=== PATIENT | female | born 1980 | race Caucasian/White ===

== ENCOUNTER 2021-09-16 19:00 | Outpatient (CLI) | payer MEDICARE, OTHER | END 2021-09-16 19:01 | disposition home or self-care (01) | LOC: SLEEPLAB 19:00 | PROVIDERS: ATTEND Internal Medicine Pulmonary Disease | DX: G47.33 Obstructive sleep apnea (adult) (pediatric) (principal); R53.83 Other fatigue; E66.9 Obesity, unspecified; R06.89 Other abnormalities of breathing; R09.02 Hypoxemia; K21.9 Gastro-esophageal reflux disease without esophagitis | CPT/HCPCS: 95810 ==

== ENCOUNTER 2021-10-08 19:00 | Outpatient (CLI) | payer MEDICARE, OTHER | END 2021-10-08 19:01 | disposition home or self-care (01) | LOC: SLEEPLAB 19:00 | PROVIDERS: ATTEND Internal Medicine Pulmonary Disease | DX: G47.33 Obstructive sleep apnea (adult) (pediatric) (principal); R06.89 Other abnormalities of breathing; R53.83 Other fatigue; I27.20 Pulmonary hypertension, unspecified; R06.83 Snoring; G47.10 Hypersomnia, unspecified; E66.9 Obesity, unspecified; Z68.42 Body mass index [BMI] 45.0-49.9, adult | CPT/HCPCS: 95811 ==

== ENCOUNTER 2021-11-21 00:57 | Inpatient (IN) | payer MEDICARE, OTHER ==
[2021-11-21] MEDS ORDERED: Ondansetron PF 4 MG/2 ML Vial IVP PRN ×2 (01:00→05:13)
[2021-11-21] MEDS ORDERED: Ondansetron ODT 4 MG TAB SL PRN (01:00)
[2021-11-21] MEDS ORDERED: Acetaminophen 325 MG TAB PO PRN ×2 (01:00→05:13)
[2021-11-21] MEDS ORDERED: Pharmacy to Dose REMDESIVIR IVPB PRN (05:16)
[2021-11-21] MEDS ORDERED: Sodium Chloride 0.9% 500 ML IV SCH (06:00)
[2021-11-21 07:33] LABS: Anion Gap 13 mmol/L (10-20); BUN (Urea Nitrogen) 20 mg/dL (7.0-18.7); Calc. Creatinine Clearance 132 mL/min (70-130); Calcium 7.2 mg/dL (7.8-10.44); Carbon Dioxide 24 mmol/L (22-29); Chloride 102 mmol/L (98-107); Glucose 138 mg/dL (70-105); Potassium 4.3 mmol/L (3.5-5.1); Sodium 135 mmol/L (136-145)
[2021-11-21 08:05] LABS: Band 20 % (5-11); Hemoglobin 11.6 g/dL (12.0-16.0); Lymphocytes 6 % (21-51); MDiff Complete? YES; Macrocytosis MODERATE=16-30 cells (100X) (0-5/hpf); Mean Corpuscular HGB CONC 32.1 g/dL (32.0-36.0); Mean Corpuscular Hemoglobin 33.7 pg (27.0-31.0); Mean Platelet Volume 9.7 fL (7.4-10.4); Metamyelocyte 3 % (0-0); Monocytes 2 % (0-10); Neutrophil 69 % (42-75); Nucleated RBC 1 % (0); Platelet Count 86 thou/uL (130-400); Platelet Morphology Comment Appears Decreased; Polychromasia MODERATE = 3-4 cells (100X) (0-2/hpf); RBC Distribution Width 16.1 % (11.5-14.5); Red Blood Cell (RBC) Count 3.44 mill/uL (4.20-5.40); White Blood Cell (WBC) Count 3.8 thou/uL (4.8-10.8)
[2021-11-21] MEDS ORDERED: REMDESIVIR 200 MG in Sodium Chloride 0.9% 250 ML 210 ML IV SCH (08:15)
[2021-11-21] MEDS: Ascorbic Acid 500 mg Chewable Tablet PO SCH (08:53)
[2021-11-21] MEDS: Famotidine 20 MG TAB PO SCH ×2 (08:53→20:50)
[2021-11-21] MEDS: Zinc Sulfate 220 MG CAP PO SCH (08:54)
[2021-11-21] MEDS ORDERED: FLU VACC QS2021-22(6MOS UP)/PF 60 MCG/0.5 ML SYRINGE IM ONE (09:00)
[2021-11-21] MEDS: Dexamethasone 10 MG/ML VIAL SLOW IVP SCH (20:49)
[2021-11-22 04:08] LABS: Anion Gap 12 mmol/L (10-20); BUN (Urea Nitrogen) 22 mg/dL (7.0-18.7); Calc. Creatinine Clearance 142 mL/min (70-130); Calcium 7.3 mg/dL (7.8-10.44); Carbon Dioxide 28 mmol/L (22-29); Chloride 99 mmol/L (98-107); Glucose 137 mg/dL (70-105); Potassium 3.7 mmol/L (3.5-5.1); Sodium 135 mmol/L (136-145)
[2021-11-22 04:10] LABS: ALT (SGPT) 10 U/L (8-55); AST (SGOT) 26 U/L (5-34); Albumin 2.7 g/dL (3.5-5.0); Alkaline Phosphatase 102 U/L (40-110); Bilirubin, Direct 0.5 mg/dL (0.1-0.3); Bilirubin, Total 0.9 mg/dL (0.2-1.2); Protein, Total 6.5 g/dL (6.0-8.3)
[2021-11-22 04:44] LABS: Anisocytosis SLIGHT = 6-15 cells (100X) (0-5/hpf); Band 26 % (5-11); Hemoglobin 11.6 g/dL (12.0-16.0); Lymphocytes 9 % (21-51); MDiff Complete? YES; Mean Corpuscular HGB CONC 31.8 g/dL (32.0-36.0); Mean Corpuscular Hemoglobin 33.2 pg (27.0-31.0); Neutrophil 65 % (42-75); Nucleated RBC 3 % (0); Platelet Count 91 thou/uL (130-400); Platelet Morphology Comment Appears Decreased; RBC Distribution Width 16.1 % (11.5-14.5); Red Blood Cell (RBC) Count 3.48 mill/uL (4.20-5.40); White Blood Cell (WBC) Count 3.4 thou/uL (4.8-10.8)
[2021-11-22] MEDS ORDERED: TADALAFIL 20 MG PO SCH (09:00)
[2021-11-22] MEDS: Spironolactone 25 MG TAB PO SCH (09:24)
[2021-11-22] MEDS: Ascorbic Acid 500 mg Chewable Tablet PO SCH (09:24)
[2021-11-22] MEDS: Cholecalciferol 1,000 UNITS (25 MCG) TAB PO SCH (09:24)
[2021-11-22] MEDS: Cyanocobalamin (Vitamin B-12) 1,000 MCG TAB PO SCH (09:25)
[2021-11-22] MEDS: Enoxaparin Sodium 40 MG/0.4 ML SYRINGE SC SCH (09:25)
[2021-11-22] MEDS: Dexamethasone 10 MG/ML VIAL SLOW IVP SCH ×2 (09:25→22:19)
[2021-11-22] MEDS: Escitalopram Oxalate 10 mg Tablet PO SCH (09:38)
[2021-11-22] MEDS: Furosemide 40 MG TAB PO SCH (09:39)
[2021-11-22] MEDS: REMDESIVIR 100 MG in Sodium Chloride 0.9% 250 ML 230 ML IV SCH (09:39)
[2021-11-22] MEDS: Famotidine 20 MG TAB PO SCH ×2 (09:39→22:18)
[2021-11-22] MEDS: Zinc Sulfate 220 MG CAP PO SCH (09:39)
[2021-11-22] MEDS: Topiramate 25 MG TAB PO SCH ×2 (10:05→22:18)
[2021-11-22] MEDS: Magnesium Oxide 250 MG TAB PO SCH (10:05)
[2021-11-22] MEDS: Mometasone 100 MCG/Formoterol 5 MCG 120 PUFF INHALER INH SCH (10:46)
[2021-11-23] MEDS: Mometasone 100 MCG/Formoterol 5 MCG 120 PUFF INHALER INH SCH ×3 (07:01→20:42)
[2021-11-23 08:27] LABS: ALT (SGPT) 11 U/L (8-55); AST (SGOT) 23 U/L (5-34); Albumin 2.8 g/dL (3.5-5.0); Alkaline Phosphatase 98 U/L (40-110); Anion Gap 10 mmol/L (10-20); BUN (Urea Nitrogen) 28 mg/dL (7.0-18.7); Bilirubin, Direct 0.5 mg/dL (0.1-0.3); Bilirubin, Total 0.9 mg/dL (0.2-1.2); Calc. Creatinine Clearance 148 mL/min (70-130); Calcium 7.7 mg/dL (7.8-10.44); Carbon Dioxide 31 mmol/L (22-29); Chloride 100 mmol/L (98-107); Glucose 125 mg/dL (70-105); Potassium 3.8 mmol/L (3.5-5.1); Protein, Total 6.6 g/dL (6.0-8.3); Sodium 137 mmol/L (136-145)
[2021-11-23 08:50] LABS: Band 17 % (5-11); Hemoglobin 11.8 g/dL (12.0-16.0); Lymphocytes 15 % (21-51); MDiff Complete? YES; Macrocytosis SLIGHT = 6-15 cells (100X) (0-5/hpf); Mean Corpuscular HGB CONC 32.4 g/dL (32.0-36.0); Mean Corpuscular Hemoglobin 33.7 pg (27.0-31.0); Metamyelocyte 1 % (0-0); Monocytes 1 % (0-10); Neutrophil 66 % (42-75); Nucleated RBC 5 % (0); Platelet Count 101 thou/uL (130-400); Platelet Morphology Comment Appears Decreased; Polychromasia SLIGHT = 2-3 cells (100X) (0-2/hpf); RBC Distribution Width 16.1 % (11.5-14.5); Red Blood Cell (RBC) Count 3.51 mill/uL (4.20-5.40); White Blood Cell (WBC) Count 3.2 thou/uL (4.8-10.8)
[2021-11-23] MEDS: Ascorbic Acid 500 mg Chewable Tablet PO SCH (09:25)
[2021-11-23] MEDS: Spironolactone 25 MG TAB PO SCH (09:25)
[2021-11-23] MEDS: Cholecalciferol 1,000 UNITS (25 MCG) TAB PO SCH (09:26)
[2021-11-23] MEDS: Cyanocobalamin (Vitamin B-12) 1,000 MCG TAB PO SCH (09:26)
[2021-11-23] MEDS: Enoxaparin Sodium 40 MG/0.4 ML SYRINGE SC SCH (09:26)
[2021-11-23] MEDS: Dexamethasone 10 MG/ML VIAL SLOW IVP SCH ×2 (09:26→19:58)
[2021-11-23] MEDS: Topiramate 25 MG TAB PO SCH ×2 (09:27→19:58)
[2021-11-23] MEDS: Famotidine 20 MG TAB PO SCH ×2 (09:27→19:58)
[2021-11-23] MEDS: Magnesium Oxide 250 MG TAB PO SCH (09:27)
[2021-11-23] MEDS: Zinc Sulfate 220 MG CAP PO SCH (09:27)
[2021-11-23] MEDS: Escitalopram Oxalate 10 mg Tablet PO SCH (09:27)
[2021-11-23] MEDS: REMDESIVIR 100 MG in Sodium Chloride 0.9% 250 ML 230 ML IV SCH (09:27)
[2021-11-23] MEDS: Furosemide 40 MG TAB PO SCH (09:27)
[2021-11-24 03:53] LABS: Anion Gap 12 mmol/L (10-20); BUN (Urea Nitrogen) 29 mg/dL (7.0-18.7); Calc. Creatinine Clearance 145 mL/min (70-130); Calcium 7.8 mg/dL (7.8-10.44); Carbon Dioxide 26 mmol/L (22-29); Chloride 102 mmol/L (98-107); Glucose 124 mg/dL (70-105); Potassium 3.9 mmol/L (3.5-5.1); Sodium 136 mmol/L (136-145)
[2021-11-24 03:56] LABS: ALT (SGPT) 11 U/L (8-55); AST (SGOT) 22 U/L (5-34); Albumin 2.8 g/dL (3.5-5.0); Alkaline Phosphatase 94 U/L (40-110); Bilirubin, Direct 0.5 mg/dL (0.1-0.3); Bilirubin, Total 0.7 mg/dL (0.2-1.2); Protein, Total 6.6 g/dL (6.0-8.3)
[2021-11-24 06:23] LABS: Mean Corpuscular HGB CONC 32.4 g/dL (32.0-36.0); Mean Corpuscular Hemoglobin 33.7 pg (27.0-31.0); Mean Platelet Volume 9.9 fL (7.4-10.4); Platelet Count 100 thou/uL (130-400); RBC Distribution Width 16.2 % (11.5-14.5); Red Blood Cell (RBC) Count 3.55 mill/uL (4.20-5.40)
[2021-11-24 06:52] LABS: Anisocytosis SLIGHT = 6-15 cells (100X) (0-5/hpf); Band 30 % (5-11); Lymphocytes 9 % (21-51); MDiff Complete? YES; Neutrophil 61 % (42-75); Nucleated RBC 3 % (0); White Blood Cell (WBC) Count 3.7 thou/uL (4.8-10.8)
[2021-11-24] MEDS: Mometasone 100 MCG/Formoterol 5 MCG 120 PUFF INHALER INH SCH ×2 (07:08→19:26)
[2021-11-24] MEDS: Ascorbic Acid 500 mg Chewable Tablet PO SCH (09:03)
[2021-11-24] MEDS: Spironolactone 25 MG TAB PO SCH (09:03)
[2021-11-24] MEDS: Cholecalciferol 1,000 UNITS (25 MCG) TAB PO SCH (09:03)
[2021-11-24] MEDS: Cyanocobalamin (Vitamin B-12) 1,000 MCG TAB PO SCH (09:03)
[2021-11-24] MEDS: Magnesium Oxide 250 MG TAB PO SCH (09:04)
[2021-11-24] MEDS: Escitalopram Oxalate 10 mg Tablet PO SCH (09:04)
[2021-11-24] MEDS: Furosemide 40 MG TAB PO SCH (09:04)
[2021-11-24] MEDS: Famotidine 20 MG TAB PO SCH ×2 (09:04→21:14)
[2021-11-24] MEDS: Topiramate 25 MG TAB PO SCH ×2 (09:04→21:14)
[2021-11-24] MEDS: Enoxaparin Sodium 40 MG/0.4 ML SYRINGE SC SCH (09:04)
[2021-11-24] MEDS: Dexamethasone 10 MG/ML VIAL SLOW IVP SCH ×2 (09:04→21:14)
[2021-11-24] MEDS: REMDESIVIR 100 MG in Sodium Chloride 0.9% 250 ML 230 ML IV SCH (09:04)
[2021-11-24] MEDS: Zinc Sulfate 220 MG CAP PO SCH (09:05)
[2021-11-25 03:48] LABS: ALT (SGPT) 12 U/L (8-55); AST (SGOT) 24 U/L (5-34); Albumin 2.7 g/dL (3.5-5.0); Alkaline Phosphatase 88 U/L (40-110); Bilirubin, Direct 0.5 mg/dL (0.1-0.3); Bilirubin, Total 0.8 mg/dL (0.2-1.2); Protein, Total 6.5 g/dL (6.0-8.3)
[2021-11-25] MEDS: Mometasone 100 MCG/Formoterol 5 MCG 120 PUFF INHALER INH SCH ×2 (07:05→18:57)
[2021-11-25] MEDS: Famotidine 20 MG TAB PO SCH ×2 (09:43→20:58)
[2021-11-25] MEDS: Topiramate 25 MG TAB PO SCH ×2 (09:44→20:58)
[2021-11-25] MEDS: Magnesium Oxide 250 MG TAB PO SCH (09:44)
[2021-11-25] MEDS: Ascorbic Acid 500 mg Chewable Tablet PO SCH (09:44)
[2021-11-25] MEDS: REMDESIVIR 100 MG in Sodium Chloride 0.9% 250 ML 230 ML IV SCH (09:44)
[2021-11-25] MEDS: Enoxaparin Sodium 40 MG/0.4 ML SYRINGE SC SCH (09:45)
[2021-11-25] MEDS: Spironolactone 25 MG TAB PO SCH (09:45)
[2021-11-25] MEDS: Furosemide 40 MG TAB PO SCH (09:45)
[2021-11-25] MEDS: Zinc Sulfate 220 MG CAP PO SCH (09:45)
[2021-11-25] MEDS: Dexamethasone 10 MG/ML VIAL SLOW IVP SCH ×2 (09:45→20:58)
[2021-11-25] MEDS: Cholecalciferol 1,000 UNITS (25 MCG) TAB PO SCH (09:45)
[2021-11-25] MEDS: Cyanocobalamin (Vitamin B-12) 1,000 MCG TAB PO SCH (09:45)
[2021-11-25] MEDS: Escitalopram Oxalate 10 mg Tablet PO SCH (09:45)
[2021-11-26] MEDS: Cholecalciferol 1,000 UNITS (25 MCG) TAB PO SCH (09:25)
[2021-11-26] MEDS: Spironolactone 25 MG TAB PO SCH (09:25)
[2021-11-26] MEDS: Magnesium Oxide 250 MG TAB PO SCH (09:25)
[2021-11-26] MEDS: Zinc Sulfate 220 MG CAP PO SCH (09:25)
[2021-11-26] MEDS: Topiramate 25 MG TAB PO SCH ×2 (09:25→21:35)
[2021-11-26] MEDS: Furosemide 40 MG TAB PO SCH (09:25)
[2021-11-26] MEDS: Cyanocobalamin (Vitamin B-12) 1,000 MCG TAB PO SCH (09:25)
[2021-11-26] MEDS: Ascorbic Acid 500 mg Chewable Tablet PO SCH (09:26)
[2021-11-26] MEDS: Dexamethasone 10 MG/ML VIAL SLOW IVP SCH ×2 (09:26→21:35)
[2021-11-26] MEDS: Escitalopram Oxalate 10 mg Tablet PO SCH (09:26)
[2021-11-26] MEDS: Famotidine 20 MG TAB PO SCH ×2 (09:26→21:35)
[2021-11-26] MEDS: Enoxaparin Sodium 40 MG/0.4 ML SYRINGE SC SCH (09:27)
[2021-11-26] MEDS: Mometasone 100 MCG/Formoterol 5 MCG 120 PUFF INHALER INH SCH ×2 (09:29→20:11)
[2021-11-27 06:31] VITALS: BMI 46.0
[2021-11-27] MEDS: Mometasone 100 MCG/Formoterol 5 MCG 120 PUFF INHALER INH SCH ×2 (08:07→19:36)
[2021-11-27] MEDS: Magnesium Oxide 250 MG TAB PO SCH (09:28)
[2021-11-27] MEDS: Topiramate 25 MG TAB PO SCH ×2 (09:28→20:36)
[2021-11-27] MEDS: Ascorbic Acid 500 mg Chewable Tablet PO SCH (09:35)
[2021-11-27] MEDS: Cholecalciferol 1,000 UNITS (25 MCG) TAB PO SCH (09:36)
[2021-11-27] MEDS: Famotidine 20 MG TAB PO SCH ×2 (09:37→20:36)
[2021-11-27] MEDS: Escitalopram Oxalate 10 mg Tablet PO SCH (09:37)
[2021-11-27] MEDS: Dexamethasone 10 MG/ML VIAL SLOW IVP SCH ×2 (09:37→20:36)
[2021-11-27] MEDS: Cyanocobalamin (Vitamin B-12) 1,000 MCG TAB PO SCH (09:37)
[2021-11-27] MEDS: Spironolactone 25 MG TAB PO SCH (09:37)
[2021-11-27] MEDS: Zinc Sulfate 220 MG CAP PO SCH (09:37)
[2021-11-27] MEDS: Enoxaparin Sodium 40 MG/0.4 ML SYRINGE SC SCH (09:37)
[2021-11-27] MEDS: Furosemide 40 MG TAB PO SCH (09:37)
[2021-11-27 10:22] LABS: #Eosinphils 0.1 thou/uL (0.0-0.7); #Lymphocytes 0.5 thou/uL (1.20-3.40); #Monocytes 0.2 thou/uL (0.11-0.59); %Basophils 0.1 % (0.0-1.0); %Eosinophils 1.7 % (0.0-10.0); %Lymphocytes 10.4 % (21.0-51.0); %Monocytes 4.7 % (0.0-10.0); %Neutrophils 83.1 % (42.0-75.0); Hemoglobin 13.6 g/dL (12.0-16.0); MDiff Complete? YES; Macrocytosis SLIGHT = 6-15 cells (100X) (0-5/hpf); Mean Corpuscular Hemoglobin 33.1 pg (27.0-31.0); Mean Platelet Volume 9.7 fL (7.4-10.4); Platelet Count 106 thou/uL (130-400); Platelet Morphology Comment Appears Decreased; Polychromasia SLIGHT = 2-3 cells (100X) (0-2/hpf); RBC Distribution Width 16.1 % (11.5-14.5); White Blood Cell (WBC) Count 4.8 thou/uL (4.8-10.8)
[2021-11-27 10:24] LABS: ALT (SGPT) 13 U/L (8-55); AST (SGOT) 21 U/L (5-34); Albumin 2.9 g/dL (3.5-5.0); Alkaline Phosphatase 86 U/L (40-110); Anion Gap 11 mmol/L (10-20); BUN (Urea Nitrogen) 31 mg/dL (7.0-18.7); Bilirubin, Total 1.2 mg/dL (0.2-1.2); Calc. Creatinine Clearance 145 mL/min (70-130); Carbon Dioxide 27 mmol/L (22-29); Chloride 103 mmol/L (98-107); Globulin 3.8 g/dL (2.4-3.5); Glucose 105 mg/dL (70-105); Protein, Total 6.7 g/dL (6.0-8.3); Sodium 137 mmol/L (136-145)
[2021-11-28] MEDS: Mometasone 100 MCG/Formoterol 5 MCG 120 PUFF INHALER INH SCH ×2 (06:30→17:38)
[2021-11-28] MEDS: Magnesium Oxide 250 MG TAB PO SCH (09:48)
[2021-11-28] MEDS: Cholecalciferol 1,000 UNITS (25 MCG) TAB PO SCH (09:48)
[2021-11-28] MEDS: Ascorbic Acid 500 mg Chewable Tablet PO SCH (09:49)
[2021-11-28] MEDS: Furosemide 40 MG TAB PO SCH (09:49)
[2021-11-28] MEDS: Escitalopram Oxalate 10 mg Tablet PO SCH (09:50)
[2021-11-28] MEDS: Famotidine 20 MG TAB PO SCH ×2 (09:50→22:00)
[2021-11-28] MEDS: Cyanocobalamin (Vitamin B-12) 1,000 MCG TAB PO SCH (09:50)
[2021-11-28] MEDS: Dexamethasone 10 MG/ML VIAL SLOW IVP SCH ×2 (09:50→22:00)
[2021-11-28] MEDS: Zinc Sulfate 220 MG CAP PO SCH (09:50)
[2021-11-28] MEDS: Topiramate 25 MG TAB PO SCH ×2 (09:50→22:00)
[2021-11-28] MEDS: Enoxaparin Sodium 40 MG/0.4 ML SYRINGE SC SCH (09:52)
[2021-11-28] MEDS: Spironolactone 25 MG TAB PO SCH (17:41)
[2021-11-29] MEDS: Mometasone 100 MCG/Formoterol 5 MCG 120 PUFF INHALER INH SCH ×2 (05:49→18:28)
[2021-11-29] MEDS: Furosemide 40 MG TAB PO SCH (08:49)
[2021-11-29] MEDS: Escitalopram Oxalate 10 mg Tablet PO SCH (08:49)
[2021-11-29] MEDS: Magnesium Oxide 250 MG TAB PO SCH (08:49)
[2021-11-29] MEDS: Famotidine 20 MG TAB PO SCH ×2 (08:49→21:00)
[2021-11-29] MEDS: Cholecalciferol 1,000 UNITS (25 MCG) TAB PO SCH (08:50)
[2021-11-29] MEDS: Dexamethasone 10 MG/ML VIAL SLOW IVP SCH ×2 (08:50→21:00)
[2021-11-29] MEDS: Ascorbic Acid 500 mg Chewable Tablet PO SCH (08:50)
[2021-11-29] MEDS: Spironolactone 25 MG TAB PO SCH (08:50)
[2021-11-29] MEDS: Cyanocobalamin (Vitamin B-12) 1,000 MCG TAB PO SCH (08:50)
[2021-11-29] MEDS: Zinc Sulfate 220 MG CAP PO SCH (08:50)
[2021-11-29] MEDS: Topiramate 25 MG TAB PO SCH ×2 (08:52→21:00)
[2021-11-29] MEDS: Enoxaparin Sodium 40 MG/0.4 ML SYRINGE SC SCH (08:55)
[2021-11-30] MEDS: Mometasone 100 MCG/Formoterol 5 MCG 120 PUFF INHALER INH SCH ×3 (06:03→18:11)
[2021-11-30] MEDS: Spironolactone 25 MG TAB PO SCH (08:19)
[2021-11-30] MEDS: Furosemide 40 MG TAB PO SCH (08:20)
[2021-11-30] MEDS: Cholecalciferol 1,000 UNITS (25 MCG) TAB PO SCH (08:20)
[2021-11-30] MEDS: Zinc Sulfate 220 MG CAP PO SCH (08:20)
[2021-11-30] MEDS: Escitalopram Oxalate 10 mg Tablet PO SCH (08:20)
[2021-11-30] MEDS: Ascorbic Acid 500 mg Chewable Tablet PO SCH (08:20)
[2021-11-30] MEDS: Magnesium Oxide 250 MG TAB PO SCH (08:20)
[2021-11-30] MEDS: Famotidine 20 MG TAB PO SCH ×2 (08:20→21:20)
[2021-11-30] MEDS: Cyanocobalamin (Vitamin B-12) 1,000 MCG TAB PO SCH (08:20)
[2021-11-30] MEDS: Topiramate 25 MG TAB PO SCH ×2 (08:22→21:20)
[2021-11-30] MEDS: Dexamethasone 10 MG/ML VIAL SLOW IVP SCH ×2 (08:25→21:20)
[2021-11-30] MEDS: Enoxaparin Sodium 40 MG/0.4 ML SYRINGE SC SCH (08:26)
[2021-12-01 06:48] LABS: #Lymphocytes 0.3 thou/uL (1.20-3.40); #Monocytes 0.2 thou/uL (0.11-0.59); #Neutrophils 4.7 thou/uL (1.40-6.50); %Basophils 0.5 % (0.0-1.0); %Eosinophils 0.5 % (0.0-10.0); %Lymphocytes 5.8 % (21.0-51.0); %Monocytes 3.9 % (0.0-10.0); %Neutrophils 89.4 % (42.0-75.0); Hemoglobin 13.9 g/dL (12.0-16.0); Mean Corpuscular HGB CONC 32.6 g/dL (32.0-36.0); Mean Corpuscular Hemoglobin 33.4 pg (27.0-31.0); Mean Platelet Volume 9.8 fL (7.4-10.4); Platelet Count 82 thou/uL (130-400); RBC Distribution Width 16.1 % (11.5-14.5); Red Blood Cell (RBC) Count 4.15 mill/uL (4.20-5.40); White Blood Cell (WBC) Count 5.2 thou/uL (4.8-10.8)
[2021-12-01] MEDS: Mometasone 100 MCG/Formoterol 5 MCG 120 PUFF INHALER INH SCH (06:51)
[2021-12-01 06:57] LABS: Anion Gap 12 mmol/L (10-20); BUN (Urea Nitrogen) 28 mg/dL (7.0-18.7); Calc. Creatinine Clearance 175 mL/min (70-130); Calcium 8.3 mg/dL (7.8-10.44); Carbon Dioxide 26 mmol/L (22-29); Chloride 105 mmol/L (98-107); Glucose 111 mg/dL (70-105); Magnesium 2.2 mg/dL (1.6-2.6); Potassium 4.6 mmol/L (3.5-5.1); Sodium 138 mmol/L (136-145)
[2021-12-01] MEDS: Cholecalciferol 1,000 UNITS (25 MCG) TAB PO SCH (08:40)
[2021-12-01] MEDS: Zinc Sulfate 220 MG CAP PO SCH (08:40)
[2021-12-01] MEDS: Magnesium Oxide 250 MG TAB PO SCH (08:40)
[2021-12-01] MEDS: Famotidine 20 MG TAB PO SCH (08:41)
[2021-12-01] MEDS: Topiramate 25 MG TAB PO SCH (08:42)
[2021-12-01] MEDS: Dexamethasone 10 MG/ML VIAL SLOW IVP SCH (08:42)
[2021-12-01] MEDS: Escitalopram Oxalate 10 mg Tablet PO SCH (08:43)
[2021-12-01] MEDS: Furosemide 40 MG TAB PO SCH (08:43)
[2021-12-01] MEDS: Spironolactone 25 MG TAB PO SCH (08:43)
[2021-12-01] MEDS: Cyanocobalamin (Vitamin B-12) 1,000 MCG TAB PO SCH (08:43)
[2021-12-01] MEDS: Enoxaparin Sodium 40 MG/0.4 ML SYRINGE SC SCH (08:43)
[2021-12-01] MEDS: Ascorbic Acid 500 mg Chewable Tablet PO SCH (08:43)
[2021-12-01 12:06] VITALS: TEMP 97.6
[2021-12-01 15:27] VITALS: BP 136/80
== END 2021-12-01 16:28 | DRG 177 ==
LOC: IMCU/EMU 00:57 → T4-B 11-27 15:43
PROVIDERS: ADMIT Internal Medicine; ATTEND Internal Medicine
PROC: 8E0ZXY6 Isolation (ICD-10-PCS; principal; 2021-11-21)
PROC: 3E0333Z Introduction of Anti-inflammatory into Peripheral Vein, Percutaneous Approach (ICD-10-PCS; 2021-11-21)
PROC: XW033E5 Introduction of Remdesivir Anti-infective into Peripheral Vein, Percutaneous Approach, New Technology Group 5 (ICD-10-PCS; 2021-11-21)
DX: U07.1 COVID-19 (principal); J12.82 Pneumonia due to coronavirus disease 2019; I50.33 Acute on chronic diastolic (congestive) heart failure; J96.21 Acute and chronic respiratory failure with hypoxia; N17.9 Acute kidney failure, unspecified; I11.0 Hypertensive heart disease with heart failure; D69.6 Thrombocytopenia, unspecified; E66.01 Morbid (severe) obesity due to excess calories; G47.33 Obstructive sleep apnea (adult) (pediatric); I27.20 Pulmonary hypertension, unspecified; Z68.41 Body mass index [BMI] 40.0-44.9, adult; Z80.8 Family history of malignant neoplasm of other organs or systems; Z80.41 Family history of malignant neoplasm of ovary; Z99.81 Dependence on supplemental oxygen; Q90.9 Down syndrome, unspecified; Z88.8 Allergy status to other drugs, medicaments and biological substances; Z79.51 Long term (current) use of inhaled steroids; Z79.899 Other long term (current) drug therapy
CPT/HCPCS: 36415; 36416; 71045; 80048; 80053; 80076; 83735; 83880; 85025; 85379; 86140; J1100; J1650; J7030; J7050

== ENCOUNTER 2023-06-23 19:58 | Inpatient (IN) | payer MEDICARE, OTHER ==
[2023-06-23] MEDS ORDERED: Acetaminophen 650 MG Suppository PR PRN (21:36)
[2023-06-23] MEDS ORDERED: Ondansetron ODT 4 MG TAB PO PRN (21:36)
[2023-06-23] MEDS ORDERED: Ondansetron PF 4 MG/2 ML Vial IVP PRN (21:36)
[2023-06-23] MEDS: Acetaminophen 325 MG TAB PO PRN (21:53)
[2023-06-24 06:37] LABS: #Monocytes 0.1 thou/uL (0.11-0.59); #Neutrophils 11.9 thou/uL (1.40-6.50); %Basophils 0.2 % (0.0-1.0); %Lymphocytes 2.9 % (21.0-51.0); %Monocytes 1.1 % (0.0-10.0); %Neutrophils 95.1 % (42.0-75.0); Hematocrit 31.3 % (36.0-47.0); Hemoglobin 9.6 g/dL (12.0-16.0); Mean Corpuscular HGB CONC 30.7 g/dL (32.0-36.0); Mean Corpuscular Hemoglobin 29.8 pg (27.0-31.0); Mean Corpuscular Volume 97.2 fl (78.0-98.0); Mean Platelet Volume 10.3 fL (7.4-10.4); Platelet Count 103 10x3/uL (130-400); RBC Distribution Width 19.9 % (11.5-14.5); Red Blood Cell (RBC) Count 3.22 mill/uL (4.20-5.40); White Blood Cell (WBC) Count 12.6 10x3/uL (4.8-10.8)
[2023-06-24 07:00] LABS: Anion Gap 13 mmol/L (10-20); BUN (Urea Nitrogen) 23 mg/dL (7.0-18.7); Calc. Creatinine Clearance 112 mL/min (70-130); Calcium 7.9 mg/dL (7.8-10.44); Carbon Dioxide 24 mmol/L (22-29); Chloride 102 mmol/L (98-107); Estimated GFR 68; Glucose 152 mg/dL (70-105); Potassium 3.8 mmol/L (3.5-5.1); Sodium 135 mmol/L (136-145)
[2023-06-24] MEDS: Acetaminophen 325 MG TAB PO PRN ×2 (08:36→14:32)
[2023-06-24] MEDS: Benzonatate 100 MG CAP PO PRN ×2 (08:36→14:32)
[2023-06-24] MEDS: cefTRIAXone\\ROCEPHIN 1 GM in Sodium Chloride 0.9% 100 ML IVPB SCH (16:28)
[2023-06-24] MEDS: Azithromycin 500 MG in Sodium Chloride 0.9% 250 ML 250 ML IVPB SCH (18:21)
[2023-06-25 03:38] VITALS: BMI 42.2
[2023-06-25 07:59] LABS: #Monocytes 0.3 thou/uL (0.11-0.59); #Neutrophils 7.3 thou/uL (1.40-6.50); %Basophils 0.2 % (0.0-1.0); %Lymphocytes 7.5 % (21.0-51.0); %Monocytes 3.4 % (0.0-10.0); %Neutrophils 88.5 % (42.0-75.0); Hematocrit 30.1 % (36.0-47.0); Hemoglobin 9.4 g/dL (12.0-16.0); Mean Corpuscular HGB CONC 31.2 g/dL (32.0-36.0); Mean Corpuscular Hemoglobin 29.9 pg (27.0-31.0); Mean Corpuscular Volume 95.9 fl (78.0-98.0); Mean Platelet Volume 11.3 fL (7.4-10.4); Platelet Count 100 10x3/uL (130-400); RBC Distribution Width 20.3 % (11.5-14.5); Red Blood Cell (RBC) Count 3.14 mill/uL (4.20-5.40); White Blood Cell (WBC) Count 8.3 10x3/uL (4.8-10.8)
[2023-06-25] MEDS: Benzonatate 100 MG CAP PO PRN (08:10)
[2023-06-25] MEDS: Acetaminophen 325 MG TAB PO PRN (08:10)
[2023-06-25 08:29] LABS: ALT (SGPT) 10 U/L (8-55); AST (SGOT) 24 U/L (5-34); Alkaline Phosphatase 92 U/L (40-110); Anion Gap 13 mmol/L (10-20); BUN (Urea Nitrogen) 26 mg/dL (7.0-18.7); Bilirubin, Total 1.1 mg/dL (0.2-1.2); Calc. Creatinine Clearance 138 mL/min (70-130); Calcium 8.2 mg/dL (7.8-10.44); Carbon Dioxide 23 mmol/L (22-29); Chloride 101 mmol/L (98-107); Estimated GFR 85; Globulin 3.8 g/dL (2.4-3.5); Glucose 90 mg/dL (70-105); Protein, Total 6.8 g/dL (6.0-8.3); Sodium 133 mmol/L (136-145)
[2023-06-25] MEDS: cefTRIAXone\\ROCEPHIN 1 GM in Sodium Chloride 0.9% 100 ML IVPB SCH (16:05)
[2023-06-25] MEDS: CO Q-10 CAPSULE 100 MG PO SCH (17:53)
[2023-06-25] MEDS: Azithromycin 500 MG in Sodium Chloride 0.9% 250 ML 250 ML IVPB SCH (17:53)
[2023-06-25] MEDS: Mometasone 100 MCG/Formoterol 5 MCG 120 PUFF INHALER INH SCH (19:37)
[2023-06-25] MEDS: Topiramate 25 MG TAB PO SCH (20:43)
[2023-06-26] MEDS: Mometasone 100 MCG/Formoterol 5 MCG 120 PUFF INHALER INH SCH ×2 (07:20→18:37)
[2023-06-26] MEDS: Furosemide 20 MG TAB PO SCH ×2 (08:05→14:22)
[2023-06-26] MEDS: Topiramate 25 MG TAB PO SCH ×2 (08:05→20:17)
[2023-06-26] MEDS: Ascorbic Acid 500 mg Chewable Tablet PO SCH (08:05)
[2023-06-26] MEDS: Magnesium Oxide 250 MG TAB PO SCH (08:05)
[2023-06-26] MEDS: Benzonatate 100 MG CAP PO PRN (08:05)
[2023-06-26] MEDS: Montelukast Sodium 10 mg Tablet PO SCH (08:05)
[2023-06-26] MEDS: CO Q-10 CAPSULE 100 MG PO SCH ×2 (08:05→16:34)
[2023-06-26] MEDS: Cyanocobalamin (Vitamin B-12) 1,000 MCG TAB PO SCH (08:05)
[2023-06-26] MEDS: Cefdinir 300 MG CAP PO SCH ×2 (08:05→20:17)
[2023-06-26] MEDS: Escitalopram Oxalate 10 mg Tablet PO SCH (08:05)
[2023-06-26] MEDS: Acetaminophen 325 MG TAB PO PRN (08:06)
[2023-06-26] MEDS: Fluticasone Propionate Nasal Spray 16 gm Bottle NASAL SCH (08:06)
[2023-06-26] MEDS ORDERED: AMBRISENTAN 10 MG PO SCH (09:00)
[2023-06-26] MEDS ORDERED: Tadalafil [Cialis] 20 MG Tablet PO SCH (09:00)
[2023-06-27] MEDS: Mometasone 100 MCG/Formoterol 5 MCG 120 PUFF INHALER INH SCH (07:20)
[2023-06-27] MEDS: Montelukast Sodium 10 mg Tablet PO SCH (07:53)
[2023-06-27] MEDS: Magnesium Oxide 250 MG TAB PO SCH (07:53)
[2023-06-27] MEDS: Ascorbic Acid 500 mg Chewable Tablet PO SCH (07:53)
[2023-06-27] MEDS: Cefdinir 300 MG CAP PO SCH (07:53)
[2023-06-27] MEDS: Cyanocobalamin (Vitamin B-12) 1,000 MCG TAB PO SCH (07:53)
[2023-06-27] MEDS: Topiramate 25 MG TAB PO SCH (07:53)
[2023-06-27] MEDS: Escitalopram Oxalate 10 mg Tablet PO SCH (07:53)
[2023-06-27] MEDS: CO Q-10 CAPSULE 100 MG PO SCH (07:53)
[2023-06-27] MEDS: Furosemide 20 MG TAB PO SCH (07:53)
[2023-06-27] MEDS: Fluticasone Propionate Nasal Spray 16 gm Bottle NASAL SCH (07:54)
[2023-06-27 08:10] VITALS: BP 94/56; TEMP 97.7
== END 2023-06-27 11:11 | disposition home or self-care (01) | DRG 196 ==
LOC: T4-A 20:38
PROVIDERS: ADMIT Student in an Organized Health Care Education/Training Program; ATTEND Internal Medicine
DX: J84.9 Interstitial pulmonary disease, unspecified (principal); I50.33 Acute on chronic diastolic (congestive) heart failure; J96.21 Acute and chronic respiratory failure with hypoxia; I11.0 Hypertensive heart disease with heart failure; J45.909 Unspecified asthma, uncomplicated; G43.909 Migraine, unspecified, not intractable, without status migrainosus; Z88.8 Allergy status to other drugs, medicaments and biological substances; Q90.9 Down syndrome, unspecified; Z79.899 Other long term (current) drug therapy; Z79.51 Long term (current) use of inhaled steroids
CPT/HCPCS: 36415; 71045; 80048; 80053; 83880; 85025; J0456; J0696; J1650; J3490; J7050